=== PATIENT | female | born 1975 | race Caucasian/White ===

== ENCOUNTER 2024-11-12 00:24 | Emergency (ER) | payer OTHER ==
[~2024-11-12] VITALS: Ht 157.5 cm; Wt 65.8 kg
[2024-11-12] MEDS ORDERED: DEXAMETHAS0.5 MG/5 M PO (03:36)
[2024-11-12] MEDS ORDERED: Lidocaine 2% Viscous Soln 100 ML BTL TOP ONE (03:40)
[2024-11-12] MEDS ORDERED: Lidocaine 2% Viscous Soln 15 ML UDC XX ONE (03:40)
== END 2024-11-12 03:48 | disposition home or self-care (01) ==
LOC: ER 00:24
DX: K12.0 Recurrent oral aphthae (principal); Z88.0 Allergy status to penicillin
CPT/HCPCS: 99282; A9270